=== PATIENT | male | born 1995 | race Caucasian/White ===

== ENCOUNTER 2018-04-27 00:49 | Emergency (ER) | payer OTHER ==
[~2018-04-27] VITALS: Ht 172.7 cm; Wt 90.9 kg
[2018-04-27 00:59] VITALS: Ht 172.7 cm; Wt 90.9 kg
--- NOTE | 2018-04-27 02:02 | ERD ---
ER Documentation Chief Complaint Chief Complaint BIB [id number] for ETOH intoxication HPI This is a 22-year-old male found in the front yard of the house passed out in the grass. Apparently the patient's been drinking high amounts of alcohol. The patient has some vomit on his pants. The patient is intoxicated and yelling but not grossly combative. I cannot elicit other history from him ROS All systems reviewed and are negative except as per history of present illness. PMhx/Soc Hx Alcohol Use: No Hx Substance Use: No Hx Tobacco Use: No FmHx Family History: No coronary disease Physical Exam Vitals Vital Signs Date Temp Pulse Resp B/P (MAP) Pulse Ox O2 O2 Flow FiO2 Time Delivery Rate 04/27/18 89 22 129/85 95 Room Air 03:55 (100) 04/27/18 98.0 90 16 142/91 100 Room Air 01:47 (108) 04/27/18 98.3 90 18 142/91 98 00:59 (108) Physical Exam Const: Well-developed, well-nourished Head: Atraumatic, normocephalic Eyes: Normal Conjunctiva, PERRLA, EOMI, normal sclera, no nystagmus ENT: Normal External Ears, Nose and Mouth, moist mucus membranes. Neck: Full range of motion. No meningismus, no lymphadenopathy. Resp: Clear to auscultation bilaterally, no wheezing, rhonchi, rales Cardio: Regular rate and rhythm, no murmurs, S1 S2 present Abd: Soft, non tender x 4, non distended. Normal bowel sounds, no guarding or rebound, no pulsitile abdominal masses or bruits Skin: No petechiae or rashes, no ecchymosis , no maculopapular rash Back: No midline or flank tenderness Ext: No cyanosis, or edema, FROM x 4, normal inspection, neurovascularly intact x 4 Neur: Patient moves all fours is groggy but will open eyes with stimulation physically he keeps yelling Psych: Unable to assess Results 24 hrs Laboratory Tests Test 04/27/18 01:43 Ethyl Alcohol Level 272.0 mg/dl [facility] CT Cervical Spine. CLINICAL INDICATION: Status post trauma TECHNIQUE: Helical CT scanning which forms the basis for coronal and sagittal reformatted images. All CT scans at this facility use dose modulation, iterative reconstruction, and/or weight-based dosing when appropriate to reduce radiation dose to as low as reasonably achievable. The CTDIvol is 22.30 mGy and the DLP is 555.83 mGy-cm. One or more of the following dose reduction techniques were used: automated exposure control, adjustment of the mA and/or kV according to patient size, or use of iterative reconstruction technique. DICOM images are available. COMPARISON: None. FINDINGS: Mild motion related artifact. Allowing for this, no acute fracture is seen. Vertebral body heights and alignment are maintained. Cervical disc space heights are maintained. Mild anterior endplate osteophyte formation and T1-2. Central canal and foraminal volumes appear intact. The prevertebral soft tissues are within normal limits. IMPRESSION: No definite fracture or significant listhesis. Clinical clearance of the cervical spine is still advised. Mild degenerative changes at T1-2 RPTAT: [facility] Physician Kevin Date Time Electronically viewed and signed by Chan Ward Physician on 04/27/2018 03:38 RF/ CC: TERESA BASSETT DO [id number] Patient: NAVEED BARROW : 1995 Age: 22 Sex: M MR #: [id number] DOS: 04/27/18 0126 Ordering MD: TERESA BASSETT DO Location: E/R Room/Bed: PROCEDURE: CT Brain without contrast. CLINICAL INDICATION: Trauma. Altered mental status. TECHNIQUE: Axial images from the skull base through the vertex without IV contrast. Multiplanar reformatted images were made. Images were reviewed on a PACS workstation. The CTDIvol is 38.10 mGy and the DLP is 713.51 mGy-cm. One or more of the following dose reduction techniques were used: automated exposure control, adjustment of the mA and/or kV according to patient size, or use of iterative reconstruction technique. DICOM images are available. COMPARISON: None. FINDINGS: Mild right anterolateral frontal scalp soft tissue swelling including at the vertex. There is no evidence for territorial infarction or intracranial hemorrhage. No mass or midline shift is seen. No extra-axial fluid collection is seen. The ventricles and cisterns are normal for age. The visualized paranasal sinuses and mastoids are clear. Intact calvarium. IMPRESSION: Mild right sided scalp soft tissue swelling. No acute intracranial sequela from trauma is seen. RPTAT: [facility] Physician Kevin Date Time Electronically viewed and signed by Physician Kevin on 04/27/2018 03:42 RF/ CC: TERESA BASSETT DO [id number] Patient is intoxicated he has no evidence of intracranial pathology. The patient's parents are now here. We will wait till he is more awake and alert ambulatory and will discharge home Departure Diagnosis: Primary Impression: Alcoholic intoxication Complication of substance-induced condition: uncomplicated Qualified Codes: F10.920 - Alcohol use, unspecified with intoxication, uncomplicated Condition: Stable TERESA BASSETT DO Apr 27, 2018 02:02
[2018-04-27 04:43] VITALS: BP 128/75; PULSE 88; RESP 20
== END 2018-04-27 04:47 | disposition home or self-care (01) ==
LOC: E/R 00:49
DX: F10.920 Alcohol use, unspecified with intoxication, uncomplicated (principal); R41.82 Altered mental status, unspecified
CPT/HCPCS: 36415; 70450; 72125; 80307